=== PATIENT | male | born 2000 | race Caucasian/White ===

== ENCOUNTER 2019-01-27 20:00 | Inpatient (IN) ==
[2019-01-27 20:50] LABS: Basophils # (auto) 0.05 K/uL (0-0.2); Basophils % (auto) 0.6 %; Eosinophils # (auto) 0.22 K/uL (0-0.5); Eosinophils % (auto) 2.7 %; Hematocrit (blood only) 45.4 % (42-52); Hemoglobin 16.5 g/dL (14.0-18.0); Immature Granulocytes # (auto) 0.02 K/uL (0.00-0.02); Immature Granulocytes % (auto) 0.2 %; Lymphocytes # (auto) 1.96 K/uL (1.2-3.4); Mean Corpuscular Hgb Conc 36.3 g/dL (32-36); Mean Corpuscular Volume 81.5 fL (80-100); Mean Platelet Volume 10.6 fL (7.4-10.4); Monocytes # (auto) 0.49 K/uL (0.11-0.59); Neutrophils # (auto) 5.42 K/uL (1.4-6.5); Neutrophils % (auto) 66.5 %; Platelet Count 238 K/uL (130-400); RDW Coefficient of Variation 13.2 % (11.5-14.5); RDW Standard Deviation 39.4 fL (36.4-46.3); Red Blood Count 5.57 M/uL (4.7-6.1); White Blood Count 8.16 K/uL (4.8-10.8)
[2019-01-27 21:07] LABS: Albumin Level 4.1 gm/dl (3.4-5.0); BUN Creatinine Ratio 14.7 (10-20); Calcium 8.7 mg/dl (8.5-10.1); Creatinine Clr Calc Pharmacy 135.8 ml/min; Est GFR (African American) 132.3; Est GFR (Non-African American) 114.1; Potassium 3.7 mmol/L (3.5-5.1)
[2019-01-27 21:08] LABS: Acetaminophen < 2 ug/ml (10-30); Salicylate < 1.7 mg/dl (2.8-20)
--- NOTE | 2019-01-27 21:08 | Emergency Department Note ---
Entered by Yanira Meza acting as a scribe for History of Present Illness General Chief complaint: Mental Health Evaluation Stated complaint: DEPRESSION,BUPROPION SIDE EFFECTS Time Seen by Provider: 01/27/19 20:08 Source: patient History of Present Illness Onset (ago): unknown (several years) Location: left and right (generalized) Pain Consistency: + other (increased) Maximum Pain Intensity: 0 Quality: + other (depression) Associated symptoms: + denies other symptoms The patient is a 18 year old male who presents to the Emergency Room with compl aints of increased depression that has been ongoing for several years. The patient reports he was prescribed Wellbutrin 4 days ago and 2 days later he woke up feeling much worse than usual. He states he had thoughts of wanting to and cried for about 4-5 hours. He notes he does not want to act on his suicidal thoughts. He reports he was bullied in elementary school and it has stuck with him for a while. The patient states it is getting harder for him to function. He notes he has been turning in assignments late and has been skipping class more recently. He reports he has never been to a psychiatric facility. Home Medications Home Medications Medication Instructions Recorded Confirmed Type bupropion HCl 150 mg PO QAM 01/27/19 01/27/19 History escitalopram oxalate 10 mg PO DAILY 01/27/19 01/27/19 History Allergies Allergy/AdvReac Type Severity Reaction Status Date / Time cat dander Allergy Mild Congested Verified 01/27/19 20:47 dog dander Allergy Mild Congested Verified 01/27/19 20:47 Past Med/Surg History Medical History Depression (Acute) Social History Preferred Language: [place] Feels Safe at Home: Yes Smoking Status: Never smoker Review of Systems See HPI for pertinent positives & negatives. and A total of 10 systems reviewed and were otherwise negative Physical Exam Vital Signs Vital Signs - 24 hr 01/27/19 20:03 01/27/19 21:59 01/27/19 23:06 Temperature 36.9 C Temperature Source Oral Sepsis Recent Fever Within 48 Hours No Sepsis Action Taken by Nursing No Action Required Pulse Rate 98 H Pulse Rate [Finger] 70 74 Pulse Rhythm Regular Pulse Strength Normal Respiratory Rate 20 14 18 Respiratory Effort / Characteristics Non-Labored Spontaneous Respiratory Depth Normal Respiratory Pattern Regular Blood Pressure 144/85 H Blood Pressure [Right Arm] 130/93 130/65 Blood Pressure Mean 104 Blood Pressure Mean [Right Arm] 105 86 Blood Pressure Position Sitting Pulse Oximetry 96 98 97 Oxygen Delivery Method Room Air Room Air Room Air CONSTITUTIONAL/VITAL SIGNS: Reviewed / noted above. GENERAL: Non-toxic in appearance. INTEGUMENTARY: Warm, dry, and [place]. HEAD: Normocephalic. EYES: without scleral icterus or trauma. ENT/OROPHARYNX: clear and moist. LYMPHADENOPATHY/NECK: Is supple without lymphadenopathy or meningismus. RESPIRATORY: Lungs clear and equal. CARDIOVASCULAR: Regular rate and rhythm. GI/ABDOMEN: Soft and nontender. No organomegaly or pulsatile mass. No rebound or guarding. Normal bowel sounds. EXTREMITIES: Warm and well perfused. BACK: No CVA tenderness. NEUROLOGICAL: Intact without focal deficits. PSYCHIATRIC: normal affect. MUSCULOSKELETAL: Normally developed with good muscle tone. PSYCH: Depressed affect. Course 2010: Past medical records reviewed. The patient was evaluated in room A8, and a complete history and physical examination were performed. 2355: The patient is waiting to be evaluated by mental health staff at this time. Medical Decision Making Differential Diagnosis differential includes toxic ingestions, self-mutilation, suicidal ideation, suicide attempt, depression. Medical Records Attestation: I reviewed the patient's medical records. Home Medications Current Medication List: was personally reviewed by me Laboratory Data Attestation: I reviewed the patient's lab results. Result diagrams: 01/27/19 20:35 01/27/19 20:35 Lab Results 01/27/19 01/27/19 01/27/19 Range/Units 20:35 20:35 20:35 WBC 8.16 (4.8-10.8) K/uL RBC 5.57 (4.7-6.1) M/uL Hgb 16.5 (14.0-18.0) g/dL Hct 45.4 (42-52) % MCV 81.5 (80-100) fL MCH 29.6 (25-34) pg MCHC 36.3 H (32-36) g/dL RDW Std Deviation 39.4 (36.4-46.3) fL RDW Coeff of Shira 13.2 (11.5-14.5) % Plt Count 238 (130-400) K/uL MPV 10.6 H (7.4-10.4) fL Immature Gran % (Auto) 0.2 % Neut % (Auto) 66.5 % Lymph % (Auto) 24.0 % [place] % (Auto) 6.0 % Eos % (Auto) 2.7 % Baso % (Auto) 0.6 % Immature Gran # (Auto) 0.02 (0.00-0.02) K/uL Neut # (Auto) 5.42 (1.4-6.5) K/uL Lymph # (Auto) 1.96 (1.2-3.4) K/uL [place] # (Auto) 0.49 (0.11-0.59) K/uL Eos # (Auto) 0.22 (0-0.5) K/uL Baso # (Auto) 0.05 (0-0.2) K/uL Sodium 138 (136-145) mmol/L Potassium 3.7 (3.5-5.1) mmol/L Chloride 107 (98-107) mmol/L Carbon Dioxide 25 (21-32) mmol/L Anion Gap 6.0 (3-11) BUN 14 (7-18) mg/dl Creatinine 0.96 (0.6-1.4) mg/dl Est Cr Clr Drug Dosing 135.8 ml/min Est GFR ( Amer) 132.3 Est GFR (Non-Af Amer) 114.1 BUN/Creatinine Ratio 14.7 (10-20) Glucose 115 H (70-99) mg/dl Calcium 8.7 (8.5-10.1) mg/dl Total Bilirubin 0.4 (0.2-1) mg/dl AST 17 (15-37) U/L ALT 25 (12-78) U/L Alkaline Phosphatase 95 (45-117) U/L Total Protein 7.4 (6.4-8.2) gm/dl Albumin 4.1 (3.4-5.0) gm/dl Globulin 3.3 (2.5-4.0) gm/dl Albumin/Globulin Ratio 1.2 (0.9-2) TSH 1.670 (0.300-4.500) uIu/ml Urine Color Urine Appearance (Clear) Urine pH (4.5-7.5) Ur Specific [place] (1.000-1.030) Urine Protein (Negative) Urine Glucose (UA) (Negative) Urine Ketones (Negative) Urine Blood (Negative) Urine Nitrite (Negative) Urine Bilirubin (Negative) Urine Urobilinogen (Negative) Ur Leukocyte Esterase (Negative) Salicylates (2.8-20) mg/dl Urine Opiates Screen (Neg) Ur Methadone, Qual (Neg) Acetaminophen (10-30) ug/ml Urine Barbiturates (Neg) Ur Phencyclidine (PCP) (Neg) U Amphetamin/Meth Scrn (Neg) MDMA (Ecstasy) Screen (Neg) U Benzodiazepines Scrn (Neg) Ur Cocaine Metabolite (Neg) U Marijuana (THC) Screen (Neg) Ethyl Alcohol mg/dL < 3.0 (0-3) mg/dl 01/27/19 01/27/19 01/27/19 Range/Units 20:36 22:17 22:17 WBC (4.8-10.8) K/uL RBC (4.7-6.1) M/uL Hgb (14.0-18.0) g/dL Hct (42-52) % MCV (80-100) fL MCH (25-34) pg MCHC (32-36) g/dL RDW Std Deviation (36.4-46.3) fL RDW Coeff of Shira (11.5-14.5) % Plt Count (130-400) K/uL MPV (7.4-10.4) fL Immature Gran % (Auto) % Neut % (Auto) % Lymph % (Auto) % [place] % (Auto) % Eos % (Auto) % Baso % (Auto) % Immature Gran # (Auto) (0.00-0.02) K/uL Neut # (Auto) (1.4-6.5) K/uL Lymph # (Auto) (1.2-3.4) K/uL [place] # (Auto) (0.11-0.59) K/uL Eos # (Auto) (0-0.5) K/uL Baso # (Auto) (0-0.2) K/uL Sodium (136-145) mmol/L Potassium (3.5-5.1) mmol/L Chloride (98-107) mmol/L Carbon Dioxide (21-32) mmol/L Anion Gap (3-11) BUN (7-18) mg/dl Creatinine (0.6-1.4) mg/dl Est Cr Clr Drug Dosing ml/min Est GFR ( Amer) Est GFR (Non-Af Amer) BUN/Creatinine Ratio (10-20) Glucose (70-99) mg/dl Calcium (8.5-10.1) mg/dl Total Bilirubin (0.2-1) mg/dl AST (15-37) U/L ALT (12-78) U/L Alkaline Phosphatase (45-117) U/L Total Protein (6.4-8.2) gm/dl Albumin (3.4-5.0) gm/dl Globulin (2.5-4.0) gm/dl Albumin/Globulin Ratio (0.9-2) TSH (0.300-4.500) uIu/ml Urine Color Yellow Urine Appearance Clear (Clear) Urine pH 6.5 (4.5-7.5) Ur Specific [place] 1.010 (1.000-1.030) Urine Protein Negative (Negative) Urine Glucose (UA) Negative (Negative) Urine Ketones Negative (Negative) Urine Blood Negative (Negative) Urine Nitrite Negative (Negative) Urine Bilirubin Negative (Negative) Urine Urobilinogen Negative (Negative) Ur Leukocyte Esterase Negative (Negative) Salicylates < 1.7 L (2.8-20) mg/dl Urine Opiates Screen Neg (Neg) Ur Methadone, Qual Neg (Neg) Acetaminophen < 2 L (10-30) ug/ml Urine Barbiturates Neg (Neg) Ur Phencyclidine (PCP) Neg (Neg) U Amphetamin/Meth Scrn Neg (Neg) MDMA (Ecstasy) Screen Pos H (Neg) U Benzodiazepines Scrn Neg (Neg) Ur Cocaine Metabolite Neg (Neg) U Marijuana (THC) Screen Neg (Neg) Ethyl Alcohol mg/dL (0-3) mg/dl MDM Narrative This is a 18-year-old male who presents to the ED with a chief complaint of depression. The patient states that he has been having depression for a long time. He states that he was started on Wellbutrin on Sunday and his depression seemed to get worse. He reports that he has been sleeping more than usual. 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 He states that he has not been doing his homework or going to class much. He has no incentive. The patient states that he would not care if he . He does not have any specific plan of hurting or killing himself. The patient's CBC and chemistry panel was unremarkable. Alcohol was negative, Tylenol and aspirin are negative. Mental health disability case manager evaluated the patient. He does have some suicidal thoughts and reported thinking about taking a bottle pills. The patient will be referred to mental health services. 3 S. will evaluate the patient. Impression & Plan Depression, Suicidal thoughts Discharge Plan Visit Data Chief Complaint: Mental Health Evaluation Stated Complaint: DEPRESSION,BUPROPION SIDE EFFECTS ED Provider: Justin Mccann Discharge Problem: Depression, Suicidal thoughts Patient Disposition: Transfer Behavioral Health Fac Forms Stand Alone Forms: My [facility] Prescriptions Prescriptions: No Action bupropion HCl 150 mg tablet sustained-release 12 hr 150 mg PO QAM RF: 0 escitalopram oxalate 10 mg tablet 10 mg PO DAILY RF: 0 Referrals Referrals: PCP,NO [Primary Care Provider] - The scribe's documentation has been prepared under my direction and personally reviewed by me in its entirety. I confirm that the note above accurately reflects all work, treatment, procedures, and medical decision making performed by me.
[2019-01-27 21:18] LABS: Albumin Globulin Ratio 1.2 (0.9-2); Bilirubin,Total 0.4 mg/dl (0.2-1); Globulin 3.3 gm/dl (2.5-4.0); Total Protein 7.4 gm/dl (6.4-8.2)
[2019-01-27 22:27] LABS: Appearance Urine Clear (Clear); Bilirubin Urine Negative (Negative); Blood Urine Negative (Negative); Color Urine Yellow; Glucose Urine UA Negative (Negative); Ketones Urine Negative (Negative); Leukocyte Esterase Urine Negative (Negative); Nitrite Urine Negative (Negative); Protein Urine Negative (Negative); Urobilinogen Urine Negative (Negative); pH Urine 6.5 (4.5-7.5)
[2019-01-27 22:51] LABS: Amphetamines+Metham, Urine Neg (Neg); Barbiturates, Urine Neg (Neg); Benzodiazepine, Urine Neg (Neg); Cocaine, Urine Neg (Neg); MDMA (Ecstacy), Urine Pos (Neg); Methadone, Urine Neg (Neg); Opiate, Urine Neg (Neg); Phencyclidine, Urine Neg (Neg)
[2019-01-28] MEDS ORDERED: ACETAMINOPHEN 325 MG TAB PO PRN (01:17)
[2019-01-28] MEDS ORDERED: ALUMINUM/MAGNESIUM SUSP 30 ML UDC PO PRN (01:17)
[2019-01-28] MEDS ORDERED: MAGNESIUM HYDROXIDE SUSP 30 ML UDC PO PRN (01:17)
[2019-01-28] MEDS ORDERED: SODIUM CHLORIDE 0.65% NA SOLN 45 ML (OCEAN) PRN (01:17)
[2019-01-28] MEDS ORDERED: BISMUTH SUBSALICYLATE PER ML OMNICELL CHARGE PO PRN (01:17)
--- NOTE | 2019-01-28 11:00 | History & Physical ---
Date of Service January 28, 2019 Impression / Recommendations Impression 18-year-old [employer] student admitted voluntarily with severe depression and suicidal thinking. The patient believes that he had worsened suicidal thoughts after starting Wellbutrin and so this will be discontinued. We will escalate the dose of his Lexapro to 20 mg a day to target his mood. He has a therapist he has been seeing for the last 5 weeks and we will refer for psychiatric aftercare. His parents both work at the University and so will likely be available for family meetings as needed. We will coordinate with his current outpatient therapist. At this time, the patient requires inpatient mental health treatment due to the severity of his condition and the risk for self-harm if discharged. (1) Depression: 01/28 differential includes dysthimic disorder, major depressive disorder - Increase Lexapro to 20 mg daily - Q 15 min checks for safety - Encourage participation in group and individual counseling - Family meeting - Coordinate with current therapist - Refer for psychiatric aftercare - Safety planing - Communicate with the university as needed - Assist the patient to explore healthy coping strategies Depression Type: unspecified Qualified Code(s): F32.9 - Major depressive disorder, single episode, unspecified Present on Admission?: Yes Inventory Assets Strengths: Desire to get better, good student Needs: healthy coping strategies Risk Factors Assessment Male: Yes : Yes Do You Have Access To A Gun?: No Health Problems: No Mental Health Diagnoses: Yes Substance Use Disorders: No Previous Attempt: No Family History of Suicide: No Previous Psychiatric Hospitalization: No Hopelessness: Yes Smoker: Yes Protective Factors Assessment : No Responsible for Young Children: No Employed: No Stable Relationships: Yes Supportive Family: Yes Good Rapport with Provider: Yes Psychiatric History Identifying Data DARLIN NICHOLAS is a 18-year-old [employer] student, admitted voluntarily with severe depression and suicidality. Information is gathered from the patient and considered to be reliable. Chief Complaint "I think I've been depressed all my life.". History of Present Illness The patient is a 18 yo male from [facility], who presented to the ED yesterday with a friend due to severe depression, and recent progressive thoughts of suicide. He starts by saying that he thinks he has been depressed all of his life, starting when he was bullied in elementary and middle school. It wasn't until between eight and ninth grades that he realized that the problem was with the bullies and not him, which enabled him to get past it. "It was like a switch flipped.". Part of the bullying had to do with being perceived as morin, and so he describes that he was hypersexual in an effort to get an girlfriend and prove them wrong. After eighth grade, he stopped that behavior and actually found that he was more disengaged from peers and cared less about relationships. He was hoping that part of his depression was linked to his home town and that coming to [employer] [facility] for college would fix it, but it didn't. He began to lose hope th at he would ever be without depression, "I had nothing to hold on to.". He went to see his PCP, Dr. Rodriguez about 5 weeks ago and was put on Lexapro 10 mg which he hasn't seen much benefit from. He returned last and Wellbutrin 150 mg was added, but after taking it for 2 days, he says that he felt alternately manic and depressed, and had SI that were more pronounced and he wasn't sure he could keep himself safe, so he stopped it. He continued to feel badly, wasn't getting out of bed, or "doing anything". Yesterday his friend became worried about the severity of his depression and concerned for his safety so encouraged him to come to the [facility] for help. Today he remains depressed and hopeless. He says that his sleep has been variable, at times staying up for 12 to 24 hours to study, alternating with times during which he sleeps to excess. If he has been studying a lot, he finds that his mind races at night inhibiting sleep. He reports low motivation saying "I care less" and so isn't going to all of his classes "I don't have that drive to go go go.". His appetite is low having to force himself to sleep. He reports current anxiety, but denies chronic anxiety or panic attacks. he denies every having had hallucinations or parnoia. He denies SIB, eating disordered symptoms or OCD. He denies any symptoms that would be congruent with bipolar disorder. Past Psychiatric History Current Psychiatric Diagnosis: Depression Outpatient Services: [facility] sessions weekly Previous Psych Admissions: None Do You Have Access To A Gun?: No History of Previous Suicide Attempt: No Past Medication Trials: None Allergies Allergy/AdvReac Type Severity Reaction Status Date / Time cat dander Allergy Mild Congested Verified 01/27/19 20:47 dog dander Allergy Mild Congested Verified 01/27/19 20:47 Home Medications Home Medications Medication Instructions Recorded Confirmed Type bupropion HCl 150 mg PO QAM 01/27/19 01/27/19 History escitalopram oxalate 10 mg PO HS 01/27/19 01/28/19 History Family History Family History of: None Alcohol History Hx of Alcohol Use Over the Past 12 Months: Yes ("Maybe 3 drinks per month") AUDIT Total Score: 1 Smoking Use Have You Smoked or Used Tobacco Products in the Last 30 Days: Yes Smoking Status: Light tobacco smoker Substance History Hx of Prescription Med Misuse Over the Past 12 Months: No Hx of Over the Counter Med Misuse Over the Past 12 Months: No Hx of Inhalent Misuse Over the Past 12 Months: No Hx of Organic Substance Use Over the Past 12 Months: Yes ("pot maybe once or twice a month if that") Hx of Illegal Substances/Street Drug Use Over Past 12 Months: No Problems as a Result of Past Substance Use: None Identified Personal History Living Arrangements: APartment Highest Grade Completed: Graduate School Highest Grade Completed Comment: [place] [employer], GPA 3.96 Employment Status: Student Marital Status: Single Beliefs That Will Affect Care: None Current Legal Problems: No Hx Legal Problems: No Hx Traumatic Life Events: Yes Psychological Trauma History Comment: Bullying Patient History Medical History Depression (Acute) Social History Preferred Language: [place] Tumblers Supervisor Required: No Beliefs That Will Affect Care: None Feels Safe at Home: Yes Smoking Status: Light tobacco smoker Review of Systems All systems reviewed & are unremarkable except as noted in HPI & below Gastrointestinal: + nausea Physical Exam Mental Examination Physical exam performed by Dr. Mccann in the ED has been reviewed and accepted as medical clearance for our unit. Psychiatric Orientation: alert, oriented x 3 and cooperative Apperance: appropriately dressed and appropriately groomed Eye Contact: good eye contact Motor Behavior: steady gait and station and no abnormal motor movements Speech: normal rate/rhythm/volume of speech Affect: + depressed affect and + flat affect Mood: + depressed mood Thought Process: goal directed thought process Thought Content: reality based without delusions Suicidal Thoughts: denies suicidal plan and denies suicidal intent; + reports suicidal thoughts Homicidal Thoughts: denies homicidal thoughts Hallucinations: no auditory hallucinations and no visual hallucinations Cognition: recent memory grossly intact, remote memory grossly intact, attention grossly intact and language grossly intact Estimated Intelligence: average estimated intelligence Insight: + impaired insight Judgement: + impaired judgement Vital Signs (Past 24 Hours) Last Vital Signs Temp 36.5 C 01/28/19 06:54 Pulse 83 01/28/19 06:55 Resp 16 01/28/19 06:54 BP 119/76 01/28/19 06:55 Pulse Ox 98 01/28/19 01:32 Results & Data Laboratory Results Laboratory Results - last 24 hr 01/27/19 01/27/19 01/27/19 20:35 20:35 20:35 WBC 8.16 RBC 5.57 Hgb 16.5 Hct 45.4 MCV 81.5 MCH 29.6 MCHC 36.3 H RDW Std Deviation 39.4 RDW Coeff of Shira 13.2 Plt Count 238 MPV 10.6 H Immature Gran % (Auto) 0.2 Neut % (Auto) 66.5 Lymph % (Auto) 24.0 [place] % (Auto) 6.0 Eos % (Auto) 2.7 Baso % (Auto) 0.6 Immature Gran # (Auto) 0.02 Neut # (Auto) 5.42 Lymph # (Auto) 1.96 [place] # (Auto) 0.49 Eos # (Auto) 0.22 Baso # (Auto) 0.05 Sodium 138 Potassium 3.7 Chloride 107 Carbon Dioxide 25 Anion Gap 6.0 BUN 14 Creatinine 0.96 Est Cr Clr Drug Dosing 135.8 Est GFR ( Amer) 132.3 Est GFR (Non-Af Amer) 114.1 BUN/Creatinine Ratio 14.7 Glucose 115 H Calcium 8.7 Total Bilirubin 0.4 AST 17 ALT 25 Alkaline Phosphatase 95 Total Protein 7.4 Albumin 4.1 Globulin 3.3 Albumin/Globulin Ratio 1.2 TSH 1.670 Urine Color Urine Appearance Urine pH Ur Specific [place] Urine Protein Urine Glucose (UA) Urine Ketones Urine Blood Urine Nitrite Urine Bilirubin Urine Urobilinogen Ur Leukocyte Esterase Salicylates Urine Opiates Screen Ur Methadone, Qual Acetaminophen Urine Barbiturates Ur Phencyclidine (PCP) U Amphetamin/Meth Scrn MDMA (Ecstasy) Screen U Benzodiazepines Scrn Ur Cocaine Metabolite U Marijuana (THC) Screen Ethyl Alcohol mg/dL < 3.0 01/27/19 01/27/19 01/27/19 20:36 22:17 22:17 WBC RBC Hgb Hct MCV MCH MCHC RDW Std Deviation RDW Coeff of Shira Plt Count MPV Immature Gran % (Auto) Neut % (Auto) Lymph % (Auto) [place] % (Auto) Eos % (Auto) Baso % (Auto) Immature Gran # (Auto) Neut # (Auto) Lymph # (Auto) [place] # (Auto) Eos # (Auto) Baso # (Auto) Sodium Potassium Chloride Carbon Dioxide Anion Gap BUN Creatinine Est Cr Clr Drug Dosing Est GFR ( Amer) Est GFR (Non-Af Amer) BUN/Creatinine Ratio Glucose Calcium Total Bilirubin AST ALT Alkaline Phosphatase Total Protein Albumin Globulin Albumin/Globulin Ratio TSH Urine Color Yellow Urine Appearance Clear Urine pH 6.5 Ur Specific [place] 1.010 Urine Protein Negative Urine Glucose (UA) Negative Urine Ketones Negative Urine Blood Negative Urine Nitrite Negative Urine Bilirubin Negative Urine Urobilinogen Negative Ur Leukocyte Esterase Negative Salicylates < 1.7 L Urine Opiates Screen Neg Ur Methadone, Qual Neg Acetaminophen < 2 L Urine Barbiturates Neg Ur Phencyclidine (PCP) Neg U Amphetamin/Meth Scrn Neg MDMA (Ecstasy) Screen Pos H U Benzodiazepines Scrn Neg Ur Cocaine Metabolite Neg U Marijuana (THC) Screen Neg Ethyl Alcohol mg/dL Current Inpatient Medications Current Inpatient Medications: Current Inpatient Medications Acetaminophen (Tylenol) 650 mg PO Q4H PRN PRN Reason: Headache or Minor Fever Stop: 02/27/19 01:16 Al Hydrox/Mg Hydrox/Simethicone (Maalox) 30 ml PO Q4H PRN PRN Reason: GI Upset Stop: 02/27/19 01:16 Bismuth Subsalicylate (Kaopectate) 15 ml PO PRN PRN PRN Reason: Loose Stool Stop: 02/27/19 01:16 Escitalopram Oxalate (Lexapro) 10 mg PO HS HARRIET Stop: 02/27/19 21:59 Hydroxyzine HCl (Vistaril) 25 mg PO Q4H PRN PRN Reason: Anxiety Stop: 02/27/19 01:16 Hydroxyzine HCl (Vistaril) 50 mg PO HSZ PRN PRN Reason: Insomnia Stop: 02/27/19 01:16 Magnesium Hydroxide (Milk Of Magnesia) 30 ml PO DAILY PRN PRN Reason: Heartburn Stop: 02/27/19 01:16 Sodium Chloride (Perdido Nasal) 1 - 2 sprays NA PRN PRN PRN Reason: Nasal Dryness/Congestion Stop: 02/27/19 01:16 CPT Code CPT Code Initial Hospital Care: 93129
[2019-01-28] MEDS ORDERED: ESCITALOPRAM OXALATE 10 MG TAB PO SCH (22:00)
[2019-01-28] MEDS: ESCITALOPRAM OXALATE 10 MG TAB PO SCH (22:21)
--- NOTE | 2019-01-29 13:37 | Psychiatric Progress Note ---
Date of Service January 29, 2019 Impression / Recommendations Impression Adjusting to the structure and support of the milieu. Feels that he had a relatively good day yesterday, giving him hope, but today is once again depressed and having trouble with motivation. Will need family meeting and aftercare, but not yet ready for discharge given that his symptoms have not meaningfully changed. (1) Depression: 01/28 differential includes dysthimic disorder, major depressive disorder - Increase Lexapro to 20 mg daily - Q 15 min checks for safety - Encourage participation in group and individual counseling - Family meeting - Coordinate with current therapist - Refer for psychiatric aftercare - Safety planing - Communicate with the university as needed - Assist the patient to explore healthy coping strategies 01/29 - Continue current meds - Family meeting - Encourage regular daily structure. Inventory Assets Strengths: Desire to get better, good student Needs: healthy coping strategies Risk Factors Assessment Male: Yes : Yes Do You Have Access To A Gun?: No Health Problems: No Mental Health Diagnoses: Yes Substance Use Disorders: No Previous Attempt: No Family History of Suicide: No Previous Psychiatric Hospitalization: No Hopelessness: Yes Smoker: Yes Protective Factors Assessment : No Responsible for Young Children: No Employed: No Stable Relationships: Yes Supportive Family: Yes Good Rapport with Provider: Yes Interval History Chief Complaint "[]". Review of Systems Sleep Information Total Hours of Sleep: 2.5 Sleep Comments: pt given vistaril per rn. pt requested and received a radio to help him relax. pt appeared to be asleep @0200 and thereafter. pt on q-15 minute checks Meal Information Percent Meal Consumed - Breakfast: 100 Percent Meal Consumed - Lunch: 100 Percent Meal Consumed - Dinner: 100 Subjective Subjective Patient was seen & assessed and interval progress reviewed with Treatment Team. Patient says that he had a good day yesterday, but today is having trouble getting himself motivated. He feels that he wants to return to bed. He has been trying to attend all of the goups and finding them helpful, and finding that being away from school and stress has been very helpful. He received multiple visitors last evening and felt supported by all. he is feeling like he wants to really focus on himself right now, not school, and acknowledges that he can be an all or nothing kind of dayna, meaning that when he does something, he invests his all in it, resulting in some life imbalance. He denies acute SI today and denies acute anxiety. Physical Exam Psychiatric Orientation: alert and cooperative Apperance: appropriately dressed, appropriately groomed, + disheveled and appeared stated age Eye Contact: good eye contact Motor Behavior: steady gait and station and no abnormal motor movements Speech: normal rate/rhythm/volume of speech Affect: + depressed affect and + flat affect Mood: + depressed mood Thought Process: goal directed thought process Thought Content: reality based without delusions Suicidal Thoughts: denies suicidal thoughts Homicidal Thoughts: denies homicidal thoughts Hallucinations: no auditory hallucinations and no visual hallucinations Cognition: recent memory grossly intact, remote memory grossly intact, attention grossly intact and language grossly intact Estimated Intelligence: average estimated intelligence Insight: + limited insight Judgement: + limited judgement Vital Signs (Past 24 Hours) Last Vital Signs Temp 36.3 C L 01/29/19 06:53 Pulse 89 01/29/19 06:53 Resp 16 01/29/19 06:53 BP 133/78 01/29/19 06:53 Pulse Ox 98 01/28/19 01:32 Results & Data Current Inpatient Medications Current Inpatient Medications: Current Inpatient Medications Acetaminophen (Tylenol) 650 mg PO Q4H PRN PRN Reason: Headache or Minor Fever Stop: 02/27/19 01:16 Al Hydrox/Mg Hydrox/Simethicone (Maalox) 30 ml PO Q4H PRN PRN Reason: GI Upset Stop: 02/27/19 01:16 Bismuth Subsalicylate (Kaopectate) 15 ml PO PRN PRN PRN Reason: Loose Stool Stop: 02/27/19 01:16 Escitalopram Oxalate (Lexapro) 20 mg PO HS HARRIET Stop: 02/27/19 21:59 Last Admin: 01/28/19 22:21 Dose: 20 mg Documented by: Hydroxyzine HCl (Vistaril) 25 mg PO Q4H PRN PRN Reason: Anxiety Stop: 02/27/19 01:16 Hydroxyzine HCl (Vistaril) 50 mg PO HSZ PRN PRN Reason: Insomnia Stop: 02/27/19 01:16 Last Admin: 01/29/19 01:29 Dose: 50 mg Documented by: Magnesium Hydroxide (Milk Of Magnesia) 30 ml PO DAILY PRN PRN Reason: Heartburn Stop: 02/27/19 01:16 Sodium Chloride ([place] Nasal) 1 - 2 sprays NA PRN PRN PRN Reason: Nasal Dryness/Congestion Stop: 02/27/19 01:16 Post Discharge Appointments Primary Care Physician Name Of Family Doctor: Dr. Rodriguez Therapist Name of Therapist: Sourav Lewis CUSTOMER CARE SPECIALIST Research Affiliate Name of Research Affiliate: None CPT Code CPT Code 11996 (1) Depression Depression Type: unspecified Qualified Code(s): F32.9 - Major depressive disorder, single episode, unspecified
[2019-01-29] MEDS: ESCITALOPRAM OXALATE 10 MG TAB PO SCH (21:03)
--- NOTE | 2019-01-30 10:05 | Psychiatric Progress Note ---
Date of Service January 30, 2019 Impression / Recommendations Impression Mood has improved slightly from admission, and the patient is feeling safe here, but he remains severely depressed, fatigued, and easily overwhelmed. He does not yet feel safe for discharge, and inpatient treatment remains medically necessary due to the severity of his symptoms and risk for rapid decompensation and suicide if discharged prematurely. (1) Depression: 01/28 differential includes dysthimic disorder, major depressive disorder - Increase Lexapro to 20 mg daily - Q 15 min checks for safety - Encourage participation in group and individual counseling - Family meeting - Coordinate with current therapist - Refer for psychiatric aftercare - Safety planing - Communicate with the university as needed - Assist the patient to explore healthy coping strategies 01/29 - Continue current meds - Family meeting - Encourage regular daily structure. 01/30 -Continue escitalopram 20 mg daily, which he is tolerating well. -Family meeting held with mother yesterday, who is supportive. -Patient struggles with maintaining daily structure, specifically sleeping at night and being awake during the day. Encouraged him to work on a plan to maintain his schedule after discharge, and discussed different ways to reinforce this. Inventory Assets Strengths: Desire to get better, good student Needs: healthy coping strategies Risk Factors Assessment Male: Yes : Yes Do You Have Access To A Gun?: No Health Problems: No Mental Health Diagnoses: Yes Substance Use Disorders: No Previous Attempt: No Family History of Suicide: No Previous Psychiatric Hospitalization: No Hopelessness: Yes Smoker: Yes Protective Factors Assessment : No Responsible for Young Children: No Employed: No Stable Relationships: Yes Supportive Family: Yes Good Rapport with Provider: Yes Interval History Identifying Information DARLIN NICHOLAS is a 18-year-old [employer] student, admitted voluntarily with severe depression and suicidality. Chief Complaint "A lot of fatigue". Review of Systems Sleep Information Total Hours of Sleep: 5 Sleep Comments: pt given vistaril per rn. pt on q-15 minute checks Meal Information Percent Meal Consumed - Breakfast: 100 Percent Meal Consumed - Lunch: 100 Percent Meal Consumed - Dinner: 100 Subjective Subjective Patient was seen & assessed and interval progress reviewed with Nursing and social work. Staff report he had a family meeting with his mother yesterday, and reported feeling better afterwards. His mother said he had been depressed for a very long time, and had even made statements about wanting to as a child because he was being bullied in school. Patient said that he had difficulty communicating socially as a child, and lack self-esteem, but now feels better about himself. He said his father does not understand his strug gles, and often makes him feel worse with his responses, which his mother agreed with, although said that he is trying to be supportive. Mother confirmed that parents disposed of the patient's home supply of bupropion. Psychoeducation was provided regarding patient's diagnosis, and mother stated that his parents would support whatever he decided to do with respect to his college classes. Although he reported not performing as well as he would like in school, his grades are still fairly good. He is considering dropping 1 or 2 of his classes, but plans to complete the semester. Mother confirmed that the father's guns are secured in a safe and the patient would not have access. On my assessment today, he reports mood is a bit improved, negative thoughts and SI are lessening, but he still feels very fatigued. He thinks that his acute worsening of SI was related to Wellbutrin, as it has improved since it was stopped. He is struggling to get himself up in the morning and not to return to bed, which has been going on for months. He is sleeping well at night, but typically goes to bed in the solar sales manager hours and sleeps until the late afternoon, and finds it difficult to phase shift to sleep. He notes that his mood is worse in the morning, and improves as the day goes on, which is another reason that he tends to resist going to bed at night. Unfortunately, staying up all night has led to missing his daytime classes, which is compounded stress and worsened mood. He is worried that when discharged, he will fall back into his pattern of sleeping all day, which leads to apathy. He does report feeling "a little bit of hope," which is something he has not felt for years. Appetite is good, "eating a lot." He is tolerating escitalopram well and denies side effects. He is concerned about how he will be able to focus and perform at school, knowing that he needs to improve before he can perform optimally. He was planning to take summer classes, but is now thinking he will take the summer off to work on recovery. He will live at home over the summer and come to [place] for treatment. Physical Exam Psychiatric Well-nourished well-developed white male appearing his stated age. Casually dressed with adequate grooming and hygiene, seated in no acute distress, with fair eye contact. Movements are slightly slowed. Cooperative with the assessment. Mood is "really fatigued, but a little bit better." Affect is restricted to depressed, congruent with stated mood. Speech is monotone, normal volume. Thoughts are linear and goal-directed. Thought content notable for hopelessness and negative thoughts, but denies SI, HI, and no hallucinations or delusions. Alert and oriented. Level of intelligence estimated to be above average. Insight and judgment are fair. Vital Signs (Past 24 Hours) Last Vital Signs Temp 36.4 C L 01/30/19 06:48 Pulse 69 01/30/19 06:48 Resp 16 01/30/19 06:48 BP 119/80 01/30/19 06:48 Pulse Ox 98 01/28/19 01:32 Results & Data Current Inpatient Medications Current Inpatient Medications: Current Inpatient Medications Acetaminophen (Tylenol) 650 mg PO Q4H PRN PRN Reason: Headache or Minor Fever Stop: 02/27/19 01:16 Al Hydrox/Mg Hydrox/Simethicone (Maalox) 30 ml PO Q4H PRN PRN Reason: GI Upset Stop: 02/27/19 01:16 Bismuth Subsalicylate (Kaopectate) 15 ml PO PRN PRN PRN Reason: Loose Stool Stop: 02/27/19 01:16 Escitalopram Oxalate (Lexapro) 20 mg PO HS HARRIET Stop: 02/27/19 21:59 Last Admin: 01/29/19 21:03 Dose: 20 mg Documented by: Hydroxyzine HCl (Vistaril) 25 mg PO Q4H PRN PRN Reason: Anxiety Stop: 02/27/19 01:16 Hydroxyzine HCl (Vistaril) 50 mg PO HSZ PRN PRN Reason: Insomnia Stop: 02/27/19 01:16 Last Admin: 01/29/19 23:28 Dose: 50 mg Documented by: Magnesium Hydroxide (Milk Of Magnesia) 30 ml PO DAILY PRN PRN Reason: Heartburn Stop: 02/27/19 01:16 Sodium Chloride ([place] Nasal) 1 - 2 sprays NA PRN PRN PRN Reason: Nasal Dryness/Congestion Stop: 02/27/19 01:16 Post Discharge Appointments Primary Care Physician Name Of Family Doctor: Dr. Rodriguez Psychiatrist Name of Psychiatrist: Marcos Preciado Psychiatrist's Psychiatric Appointment Comment: [address] [place] [address] Therapist Name of Therapist: Sourav Lewis LOGISTICS OPERATIONS DIRECTOR Therapist's Therapy Appointment Comment: [address] [facility], [place] [address] Yeast Washer Name of Yeast Washer: [employer] - [facility] Phone Number for Yeast Washer: [phone] Date of Appointment with Yeast Washer: 02/04/19 Time of Appointment with Yeast Washer: 9:30 a.m. Case Management Appointment Comment: [address] [facility] CPT Code CPT Code 87010 (1) Depression Depression Type: unspecified Qualified Code(s): F32.9 - Major depressive disorder, single episode, unspecified
[2019-01-30] MEDS: ESCITALOPRAM OXALATE 10 MG TAB PO SCH (21:13)
--- NOTE | 2019-01-31 10:14 | Psychiatric Progress Note ---
Date of Service January 31, 2019 Impression / Recommendations Impression Pt reports continued improvement in mood, especially from last evening into today. He admits to a desire to "keep the momentum going" and is understanding of our desire to see consistency of mood improvement prior to considering discharge. Pt states he is "feeling closer to being ready to go", but agrees that there are still aspects of his aftercare he will need to resolve. The biggest decision, which also remains a large stressor, is if the patient is planning to withdraw from school. Pt was encouraged to consider these options today to develop a clear plan for discharge. Pt agrees he is not ready for d ischarge today, and given long history of depressive symptoms, he is at increased risk for rapid decompensation and suicide if discharged prematurely. (1) Depression: 01/28 differential includes dysthimic disorder, major depressive disorder - Increase Lexapro to 20 mg daily - Q 15 min checks for safety - Encourage participation in group and individual counseling - Family meeting - Coordinate with current therapist - Refer for psychiatric aftercare - Safety planing - Communicate with the university as needed - Assist the patient to explore healthy coping strategies 01/29 - Continue current meds - Family meeting - Encourage regular daily structure. 01/30 -Continue escitalopram 20 mg daily, which he is tolerating well. -Family meeting held with mother yesterday, who is supportive. -Patient struggles with maintaining daily structure, specifically sleeping at night and being awake during the day. Encouraged him to work on a plan to m aintain his schedule after discharge, and discussed different ways to reinforce this. 01/31 - Continue current medication regimen - Mood improving, encouraged him to solidify discharge plan in regard to returning to school vs. withdrawal - Hoping to see consistency of mood improvement, as only now reporting a significant positive change. If so, may be ready for discharge in the next day or so. Will continue to monitor to decide on safe discharge planning Inventory Assets Strengths: Desire to get better, good student Needs: healthy coping strategies Risk Factors Assessment Male: Yes : Yes Do You Have Access To A Gun?: No Health Problems: No Mental Health Diagnoses: Yes Substance Use Disorders: No Previous Attempt: No Family History of Suicide: No Previous Psychiatric Hospitalization: No Hopelessness: Yes Smoker: Yes Protective Factors Assessment : No Responsible for Young Children: No Employed: No Stable Relationships: Yes Supportive Family: Yes Good Rapport with Provider: Yes Interval History Identifying Information DARLIN NICHOLAS is a 18-year-old [employer] student, admitted voluntarily with severe depression and suicidality. Chief Complaint "I've been trying really hard to work on my fatigue". Review of Systems Notes Constitutional: reports ongoing fatigue Cardiovascular: denied Respiratory: denied Gastrointestinal: denied Neurological: denied Psychiatric: denies symptoms other than stated above Total of at least 10 systems reviewed, pertinent positives as above and in HPI. Sleep Information Total Hours of Sleep: 5 Sleep Comments: pt given vistaril per rn. pt on q-15 minute checks Meal Information Percent Meal Consumed - Breakfast: 100 Percent Meal Consumed - Lunch: 100 Percent Meal Consumed - Dinner: 100 Subjective Subjective Patient was seen & assessed and interval progress reviewed with Treatment Team. Pt reports noticing some improvement in mood since yesterday. He states, "last night was the first time I felt like I was getting close to feeling ready to go." Pt states passive SI is ongoing, but has been easier to ignore. He states, "I'm seeing improvement, I'm just trying to keep the positive momentum going, and I think that helps with those thoughts." Pt states he is currently trying to decide if he will be continuing with school, withdrawing for the semester, or dropping classes. Pt is weighing out which option will allow him to continue the success he feels he has initiated here. Pt denies medication side effects and fatigue is improving slowly with attempts to keep a sleep routine on the unit. Pt denies other psychiatric concerns today. Physical Exam Psychiatric Orientation: alert, oriented x 3 and cooperative Apperance: appropriately dressed and appropriately groomed Eye Contact: good eye contact Motor Behavior: steady gait and station and no abnormal motor movements Speech: normal rate/rhythm/volume of speech Affect: + blunted affect (subdued) Mood: + depressed mood but, "getting higher" Thought Process: goal directed thought process and clear/coherent thought process Thought Content: reality based without delusions Suicidal Thoughts: denies suicidal thoughts, denies suicidal plan and denies suicidal intent Homicidal Thoughts: denies homicidal thoughts Hallucinations: no auditory hallucinations and no visual hallucinations Cognition: recent memory grossly intact, remote memory grossly intact, attention grossly intact and language grossly intact Estimated Intelligence: average estimated intelligence Insight: + fair insight Judgement: + fair judgement Vital Signs (Past 24 Hours) Last Vital Signs Temp 36.4 C L 01/31/19 06:51 Pulse 78 01/31/19 06:51 Resp 60 H 01/31/19 06:51 BP 124/73 01/31/19 06:51 Pulse Ox 98 01/28/19 01:32 Results & Data Current Inpatient Medications Current Inpatient Medications: Current Inpatient Medications Acetaminophen (Tylenol) 650 mg PO Q4H PRN PRN Reason: Headache or Minor Fever Stop: 02/27/19 01:16 Al Hydrox/Mg Hydrox/Simethicone (Maalox) 30 ml PO Q4H PRN PRN Reason: GI Upset Stop: 02/27/19 01:16 Bismuth Subsalicylate (Kaopectate) 15 ml PO PRN PRN PRN Reason: Loose Stool Stop: 02/27/19 01:16 Escitalopram Oxalate (Lexapro) 20 mg PO HS AHRRIET Stop: 02/27/19 21:59 Last Admin: 01/30/19 21:13 Dose: 20 mg Documented by: Hydroxyzine HCl (Vistaril) 25 mg PO Q4H PRN PRN Reason: Anxiety Stop: 02/27/19 01:16 Hydroxyzine HCl (Vistaril) 50 mg PO HSZ PRN PRN Reason: Insomnia Stop: 02/27/19 01:16 Last Admin: 01/30/19 23:29 Dose: 50 mg Documented by: Magnesium Hydroxide (Milk Of Magnesia) 30 ml PO DAILY PRN PRN Reason: Heartburn Stop: 02/27/19 01:16 Sodium Chloride ([place] Nasal) 1 - 2 sprays NA PRN PRN PRN Reason: Nasal Dryness/Congestion Stop: 02/27/19 01:16 Post Discharge Appointments Primary Care Physician Name Of Family Doctor: Dr. Rodriguez Psychiatrist Name of Psychiatrist: Marcos Preciado Psychiatrist's Date of Appointment with Psychiatrist: 02/06/19 Time of Appointment with Psychiatrist: 1:40pm Psychiatric Appointment Comment: [address] [facility] [address] Therapist Name of Therapist: Sourav Lewis LCSW Therapist's Date of Therapist Appointment: 02/04/19 Time of Therapist Appointment: 1pm Therapy Appointment Comment: [address] [facility] [place] [address] Refrigerated Company Driver Name of Refrigerated Company Driver: [employer] Phone Number for Refrigerated Company Driver: [phone] Date of Appointment with Refrigerated Company Driver: 02/04/19 Time of Appointment with Refrigerated Company Driver: 9:30 a.m. Case Management Appointment Comment: [address] [place] [address] CPT Code CPT Code 93230 (1) Depression Depression Type: unspecified Qualified Code(s): F32.9 - Major depressive disorder, single episode, unspecified
--- NOTE | 2019-01-31 15:39 | Communication Note ---
Date of Service: January 31, 2019 I personally met with the patient today in order to assess his current mental status, evaluate his response to treatment, review his current treatment plan, and make any necessary changes there in. The patient will spontaneously verbal and actively engaged in dialogue. He reports that he is feeling significantly better, especially over the past 24 hours. While he says that he would "like to go home today," he feels that it would be cabrera for him to stay at least another 1-3 days in order to assure that the improvement is sustained. He reports that he was encouraged by a story that I had told him about a person that I knew who had had a mental illness and had described the illness as a "gift" when considered in a broad perspective, for various reasons, including the fact that it contributed to her ability to develop greater tolerance, greater empathy, greater insight and greater understanding of the human condition than she might otherwise have had. On mental status examination, the patient was cooperative and appropriately dressed and groomed. He was spontaneously verbal and his thought processes were goal oriented and his associations were tight. There was no evidence of any psychotic features and the patient's thought content. He does not endorse any perceptual disturbances. The patient's judgment and insight both are assessed as being good. He reports that he is not currently experiencing any thoughts of suicide, nor is he experiencing any thoughts of causing physical harm to the person or property of others. The patient's strengths include above average intelligence and he is able to talk about the consequences of his having been bullied as a child and the positive impact that that has had on him today because of his ability to serve as a role model and support for persons for similarly at risk for being bullied. I agree with the plan to continue hospitalization for 1-3 days. The patient's improvement is fairly recent, and as he, himself, it will be important to determine if the improvement is sustained prior to reentry into the community.
[2019-01-31] MEDS ORDERED: NICOTINE POLACRILEX 2 MG GUM MT PRN (16:04)
[2019-01-31] MEDS: ESCITALOPRAM OXALATE 10 MG TAB PO SCH (21:08)
--- NOTE | 2019-02-01 11:35 | Discharge Summary ---
Date of Service February 01, 2019 History of Present Illness The patient is a 18 yo male from [facility], who presented to the ED yesterday with a friend due to severe depression, and recent progressive thoughts of suicide. He starts by saying that he thinks he has been depressed all of his life, starting when he was bullied in elementary and middle school. It wasn't until between eight and ninth grades that he realized that the problem was with the bullies and not him, which enabled him to get past it. "It was like a switch flipped.". Part of the bullying had to do with being perceived as morin, and so he describes that he was hypersexual in an effort to get an girlfriend and prove them wrong. After eighth grade, he stopped that behavior and actually found that he was more disengaged from peers and cared less about relationships. He was hoping that part of his depression was linked to his home town and that coming to [employer] for college would fix it, but it didn't. He began to lose hope that he would ever be without depression, "I had nothing to hold on to.". He went to see his PCP, Dr. Rodriguez about 5 weeks ago and was put on Lexapro 10 mg which he hasn't seen much benefit from. He returned last and Wellbutrin 150 mg was added, but after taking it for 2 days, he says that he felt alternately manic and depressed, and had SI that were more pronounced and he wasn't sure he could keep himself safe, so he stopped it. He continued to feel badly, wasn't getting out of bed, or "doing anything". Yesterday his friend became worried about the severity of his depression and concerned for his safety so [facility]. Today he remains depressed and hopeless. He says that his sleep has been variable, at times staying up for 12 to 24 hours to study, alternating with times during which he sleeps to excess. If he has been studying a lot, he finds that his mind races at night inhibiting sleep. He reports low motivation saying "I care less" and so isn't going to all of his classes "I don't have that drive to go go go.". His appetite is low having to force himself to sleep. He reports current anxiety, but denies chronic anxiety or panic attacks. he denies every having had hallucinations or parnoia. He denies SIB, eating disordered symptoms or OCD. He denies any symptoms that would be congruent with bipolar disorder. Physical Exam Psychiatric Orientation: alert, oriented x 3 and cooperative Apperance: appropriately dressed, appropriately groomed and appeared stated age Eye Contact: good eye contact Motor Behavior: steady gait and station and no abnormal motor movements Speech: normal rate/rhythm/volume of speech Affect: euthymic affect "Good. I'm learning a lot about stress and my fatigue." Thought Process: goal directed thought process, linear/logical thought process and clear/coherent thought process Thought Content: reality based without delusions Suicidal Thoughts: denies suicidal thoughts, denies suicidal plan and denies suicidal intent Homicidal Thoughts: denies homicidal thoughts Hallucinations: no auditory hallucinations and no visual hallucinations Cognition: recent memory grossly intact, remote memory grossly intact, attention grossly intact and language grossly intact Estimated Intelligence: average estimated intelligence Insight: good insight Judgement: good judgement Vital Signs (Past 24 Hours) Last Vital Signs Temp 36.5 C 02/01/19 06:31 Pulse 98 H 02/01/19 06:32 Resp 16 02/01/19 06:31 BP 116/69 02/01/19 06:32 Pulse Ox 98 01/28/19 01:32 Principal Diagnosis Differential: major depressive disorder versus dysthymic disorder Psychiatric Data 18-year-old male admitted voluntarily for inpatient psychiatric treatment due to worsening depression and progressing SI. Pt was brought to ED by a friend. Pt reported history of depression for most of his life, but symptoms were exacerbated with recent trial of bupropion. Pt reported increased depression and admitted to more pronounced SI. He was agreeable to returning to escitalopram, which had been increased to 20mg from a previous 10mg trial. Pt tolerated medication changes and denied exacerbation of mood symptoms with these adjustments. Pt participated in groups and was interactive in the milieu. He set personal goals, including a desire to focus on his sleep schedule/routine as well as to take steps to better manage his stress and work load. Pt states he is planning to return to classes at [employer], but may consider dropping several to alleviate stress and improve attention to his other courses. Pt participated in a family meeting with his mother, who remains supportive. He completed a safety plan and assisted with development of his aftercare. Family confirmed excessive medications are disposed of. Pt denied ongoing suicidal ideation and is able to contract for safety on the day of discharge. He remains future oriented, frequently comments about new "motivation" and "momentum" and is agreeable to outpatient follow-up as arranged. Based on progress during admission, patient no longer appears to be at acute risk of harm to self. He appears appropriate at this time for discharge with ongoing outpatient psychiatric treatment. Day of Discharge Assessment Pt's case was reviewed and discussed with nursing. Staff report the patient seems to be making improvements. Pt was seen today to assess readiness for discharge. Pt reports continuing to take steps to manage his fatigue with a more regular sleep schedule. He has noticed positive changes and is optimistic about his progress thus far. Pt continues to learn about ways to reduce and m anage stress and is continuing to consider dropping classes to better direct his focus and "keep this positive momentum and stay on track." Pt states, "it was brutal burnout combined with underlying depression." He reports feeling he has learned a significant amount and he denies ongoing SI. Pt states, "in no way do I think I'm a risk to myself." He is able to contract for safety and we discus sed ongoing use of his safety plan in the outpatient setting. Based on review of admission and current presentation, patient does not appear to be at acute risk of harm to self and risk factors have been mitigated where possible. He seems appropriate for ongoing psychiatric treatment in the outpatient setting. ROS: Constitutional: reports ongoing fatigue, attempting to achieve routine sleep schedule Cardiovascular: denied Respiratory: denied Gastrointestinal: denied Neurological: denied Psychiatric: denies symptoms other than stated above Total of at least 10 systems reviewed, pertinent positives as above and in HPI. Transition of Care Transition Of Care Record: was reviewed with the patient Advance Directives Advance Directives Information Provided: Yes Advance Directives: No Mental Health Advance Directive: No Advance Directives on File: No Living Will: No Power of Planning Intern: No Advance Directives Reason:: Declines as Mental Health Visit. Risk Factors Assessment Male: Yes : Yes Do You Have Access To A Gun?: No Health Problems: No Mental Health Diagnoses: Yes Substance Use Disorders: No Previous Attempt: No Family History of Suicide: No Previous Psychiatric Hospitalization: No Hopelessness: Yes Smoker: Yes Protective Factors Assessment : No Responsible for Young Children: No Employed: No Stable Relationships: Yes Supportive Family: Yes Good Rapport with Provider: Yes Tobacco Cessation at Discharge Tobacco Cessation Medication Prescribed at Discharge: Offered & Pt Refused Total Time Total Time Spent: Greater Than 30 Minutes Total Time Includes: Examination of the patient, Discharge Planning, Medication Reconciliation and Communication with other providers Discharge Data Lab Results 01/27/19 01/27/19 01/27/19 20:35 20:35 20:35 WBC 8.16 RBC 5.57 Hgb 16.5 Hct 45.4 MCV 81.5 MCH 29.6 MCHC 36.3 H RDW Std Deviation 39.4 RDW Coeff of Shira 13.2 Plt Count 238 MPV 10.6 H Immature Gran % (Auto) 0.2 Neut % (Auto) 66.5 Lymph % (Auto) 24.0 Ada % (Auto) 6.0 Eos % (Auto) 2.7 Baso % (Auto) 0.6 Immature Gran # (Auto) 0.02 Neut # (Auto) 5.42 Lymph # (Auto) 1.96 Ada # (Auto) 0.49 Eos # (Auto) 0.22 Baso # (Auto) 0.05 Sodium 138 Potassium 3.7 Chloride 107 Carbon Dioxide 25 Anion Gap 6.0 BUN 14 Creatinine 0.96 Est Cr Clr Drug Dosing 135.8 Est GFR ( Amer) 132.3 Est GFR (Non-Af Amer) 114.1 BUN/Creatinine Ratio 14.7 Glucose 115 H Calcium 8.7 Total Bilirubin 0.4 AST 17 ALT 25 Alkaline Phosphatase 95 Total Protein 7.4 Albumin 4.1 Globulin 3.3 Albumin/Globulin Ratio 1.2 TSH 1.670 Urine Color Urine Appearance Urine pH Ur Specific Philo Urine Protein Urine Glucose (UA) Urine Ketones Urine Blood Urine Nitrite Urine Bilirubin Urine Urobilinogen Ur Leukocyte Esterase Salicylates Urine Opiates Screen Ur Methadone, Qual Acetaminophen Urine Barbiturates Ur Phencyclidine (PCP) U Amphetamin/Meth Scrn MDMA (Ecstasy) Screen U Benzodiazepines Scrn Ur Cocaine Metabolite U Marijuana (THC) Screen Ethyl Alcohol mg/dL < 3.0 01/27/19 01/27/19 01/27/19 20:36 22:17 22:17 WBC RBC Hgb Hct MCV MCH MCHC RDW Std Deviation RDW Coeff of Shira Plt Count MPV Immature Gran % (Auto) Neut % (Auto) Lymph % (Auto) Ada % (Auto) Eos % (Auto) Baso % (Auto) Immature Gran # (Auto) Neut # (Auto) Lymph # (Auto) Ada # (Auto) Eos # (Auto) Baso # (Auto) Sodium Potassium Chloride Carbon Dioxide Anion Gap BUN Creatinine Est Cr Clr Drug Dosing Est GFR ( Amer) Est GFR (Non-Af Amer) BUN/Creatinine Ratio Glucose Calcium Total Bilirubin AST ALT Alkaline Phosphatase Total Protein Albumin Globulin Albumin/Globulin Ratio TSH Urine Color Yellow Urine Appearance Clear Urine pH 6.5 Ur Specific Philo 1.010 Urine Protein Negative Urine Glucose (UA) Negative Urine Ketones Negative Urine Blood Negative Urine Nitrite Negative Urine Bilirubin Negative Urine Urobilinogen Negative Ur Leukocyte Esterase Negative Salicylates < 1.7 L Urine Opiates Screen Neg Ur Methadone, Qual Neg Acetaminophen < 2 L Urine Barbiturates Neg Ur Phencyclidine (PCP) Neg U Amphetamin/Meth Scrn Neg MDMA (Ecstasy) Screen Pos H U Benzodiazepines Scrn Neg Ur Cocaine Metabolite Neg U Marijuana (THC) Screen Neg Ethyl Alcohol mg/dL Hospital Course (1) Depression: 01/28 differential includes dysthimic disorder, major depressive disorder - Increase Lexapro to 20 mg daily - Q 15 min checks for safety - Encourage participation in group and individual counseling - Family meeting - Coordinate with current therapist - Refer for psychiatric aftercare - Safety planing - Communicate with the university as needed - Assist the patient to explore healthy coping strategies 01/29 - Continue current meds - Family meeting - Encourage regular daily structure. 01/30 -Continue escitalopram 20 mg daily, which he is tolerating well. -Family meeting held with mother yesterday, who is supportive. -Patient struggles with maintaining daily structure, specifically sleeping at night and being awake during the day. Encouraged him to work on a plan to maintain his schedule after discharge, and discussed different ways to reinforce this. 01/31 - Continue current medication regimen - Mood improving, encouraged him to solidify discharge plan in regard to returning to school vs. withdrawal - Hoping to see consistency of mood improvement, as only now reporting a significant positive change. If so, may be ready for discharge in the next day or so. Will continue to monitor to decide on safe discharge planning Post Discharge Appointments Primary Care Physician Name Of Family Doctor: Dr. Rodriguez Psychiatrist Name of Psychiatrist: Marcos Preciado Psychiatrist's Date of Appointment with Psychiatrist: 02/06/19 Time of Appointment with Psychiatrist: 1:40pm Psychiatric Appointment Comment: [address] [place] [place] [address] Therapist Name of Therapist: Souravisabel BAUTISTAW Therapist's Date of Therapist Appointment: 02/04/19 Time of Therapist Appointment: 1pm Therapy Appointment Comment: [address] [place] [address] Construction Manager Name of Construction Manager: [facility] Phone Number for Construction Manager: [phone] Date of Appointment with Construction Manager: 02/04/19 Time of Appointment with Construction Manager: 9:30 a.m. Case Management Appointment Comment: [address] [facility] Smoking Cessation Counseling Tobacco Cessation Medication Prescribed at Discharge: Offered & Pt Refused Contact Information Discharge Discharge Address: [address] [place] [address] Discharge Plan Discharge Items Patient Disposition: Home - Self-Care Reason For Visit: DEPRESSION, NOS Discharge Diagnosis: Depression Condition: Good Discharge Goals: Decrease discomfort, Improve disease control, Improve function, Learn about illness and Therapeutic intervention Activity: Resume your previous activity Non-emergency contact: Primary Care Provider, Psychiatrist and Therapist Call non-emergency contact if: you have any medication questions and your symptoms worsen Follow-up/Referrals: PCP,NO [Primary Care Provider] - Diet: Regular Addtl Provider Instructions: SPECIAL CARE INSTRUCTIONS: 1. Follow through with your scheduled aftercare appointments. If unable to keep an appointment, please call to reschedule. 2. Take your medication only as prescribed. Medication should not be changed or stopped without the approval of your doctor. In the event of worsening symptoms or concerns about side effects, contact your doctor immediately. 3. Utilize new healthy coping skills, anger management skills, and stress management skills learned during your hospitalization. Journal feelings and process them with a support person. Identify stressors or situations that may result in relapse, deterioration or inappropriate behaviors and develop a plan to deal with those issues. 4. If your coping skills are ineffective and you are in crisis, contact your outpatient providers for direction. If unable to reach your providers, please call the CAN HELP LINE AT or go to the closest Emergency Room. 5. Avoid alcohol and un-prescribed drugs. 6. You have been provided with the Mental Health Advance Directives Pamphlet for your review. AFTERCARE APPOINTMENTS: * Please call your insurance company prior to your scheduled appointment to confirm your aftercare providers are covered. Take your insurance information to your appointments. WHO TO CALL AND WHEN: Medical Emergencies: For questions or emergencies related to your hospital stay, please contact the Inpatient Behavioral Health Unit at [phone]. A prosthodontist is on-call 04/06 for the Behavioral Health Unit for emergencies At any time you feel your situation is an emergency, you may also call 911 immediately. Your Doctors Instructions noted above were prepared by provider Jany goodrich PA-C. Prescriptions: New escitalopram oxalate 20 mg tablet 20 mg PO HS 30 Days Qty: 30 RF: 0 Discontinued bupropion HCl 150 mg tablet sustained-release 12 hr 150 mg PO QAM RF: 0 escitalopram oxalate 10 mg tablet 10 mg PO HS RF: 0 Visit Report Forms: Smoking Cessation Stand-Alone Forms: My [facility] [employer]/Other Patient Handouts: Depression Mind Body, Depression Know Signs Sx Discharge Orders: Discharge Order (Routine); Ordered 02/01/19 Ordered By: Jany Peña Admission Data Admit Date/Time: 01/28/19 01:17 Attending Provider: Josy Devries Admit Provider: Cody Oreilly I Primary Care Provider: PCP,NO Service: Psychiatry Other Interventions: Discharge Summary Assessment (RN) Last Done: 02/01/19 11:50 PSY Interdisciplinary Discharge Planning Last Done: 02/01/19 11:49 Pending Studies at Discharge: No DC Date/Time DO NOT enter until pt leaves facility: 02/01/19 12:57
== END 2019-02-01 12:57 | disposition home or self-care (01) | DRG 881 ==
LOC: ED 20:00 → 3S 01-28 01:17